=== PATIENT | male | born 1960 | race Caucasian/White ===

== ENCOUNTER 2019-03-30 23:05 | Emergency (ER) | payer OTHER ==
--- NOTE | 2019-03-30 23:56 | ED Physician Documentation ---
General Adult - HISTORIAN Historian: patient - HPI Chief Complaint: General Adult Further Comments: yes (58 year old male patient presents with wound vac coming off of left wound; accidently pulled loose losing suction while patient was at the [facility]. Is follow by [facility] wound care.) - ROS CONST: no problems EYES/ENT: none CVS/RESP: none GI/: none MS/SKIN/LYMPH: none NEURO/PSYCH: denies: headache, fainting, dizziness, tingling, numbness, difficulty walking, difficulty with speech, anxiety, depression, other - PAST HX Past History: other (chronic left leg wound) - SOCIAL HX Smoking History: non-smoker - FAMILY HX Family History: No - REVIEWED ASSESSMENTS Nursing Assessment Reviewed: Yes Vitals Reviewed: Yes Progress - Progress Progress: Patient presents with wound vac supplies; dressing changed by nursing; suction working well. ED Results Lab/Radiology - Orders Orders: ED Orders Category Date Time Status Further Nursing Orders 1T Care 03/30/19 23:24 Active General Adult Physical Exam - PHYSICAL EXAM GENERAL APPEARANCE: no distress EENT: KVNG RESPIRATORY: no resp distress CVS: reg rate & rhythm SKIN: warm/dry, normal color, other (left lower lateral leg with wound vac) NEURO: oriented X3, motor nml, sensation nml, mood/affect nml Discharge Clincal Impression: Dressing change Wound of left leg Qualifiers: Encounter type: initial encounter Qualified Code(s): S81.802A - Unspecified open wound, left lower leg, initial encounter Referrals: Primary Doctor,No [Primary Care Provider] - 2 Days Additional Instructions: Continue your current wound care instructions per the wound clinic. Condition: Stable Disposition: 01 HOME, SELF-CARE Decision to Admit: NO Decision Time: 23:56
[2019-03-31 02:05] VITALS: BP 108/66
== END 2019-03-31 00:05 | disposition home or self-care (01) ==
LOC: ED 23:05
DX: S81.802A Unspecified open wound, left lower leg, initial encounter (principal); X58.XXXA Exposure to other specified factors, initial encounter; Y99.8 Other external cause status
CPT/HCPCS: 99282